=== PATIENT | male | born 2000 | race Caucasian/White ===

== ENCOUNTER 2024-06-12 07:24 | Emergency (ER) | payer SELFPAY ==
[2024-06-12 07:40] VITALS: BP 142/87; RESP 18; TEMP 98.2; BMI 25.0
[2024-06-12 09:11] LABS: THROAT:GRP A STREP NOT DETECTED (NOTDETECTED)
[2024-06-12] MEDS ORDERED: MAG HYDROX/AL HYDROX/SIMETH 30 ML UNIT-DOSE CUP PO ONE (09:13)
[2024-06-12] MEDS ORDERED: MAG HYDROX/AL HYDROX/SIMETH 30 ML UNIT-DOSE CUP ONE (09:19)
[2024-06-12 09:22] VITALS: PULSE 96
[2024-06-12] MEDS ORDERED: DEXAMETHASONE 4 MG TABLET (FP) ONE (10:06)
[2024-06-12] MEDS: DEXAMETHASONE 4 MG TABLET (FP) PO ONE (10:23)
== END 2024-06-12 10:55 | disposition home or self-care (01) ==
LOC: JER 07:24
DX: J02.9 Acute pharyngitis, unspecified (principal); R50.9 Fever, unspecified; R11.2 Nausea with vomiting, unspecified; R13.10 Dysphagia, unspecified; Z20.822 Contact with and (suspected) exposure to COVID-19
CPT/HCPCS: 0241U-QW; 87651; 99283-25